=== PATIENT | female | born 1950 | race Caucasian/White ===

== ENCOUNTER → 2018-02-19 | Outpatient (CLI) | payer MEDICARE | LOC: RAD 13:47 | PROVIDERS: ATTEND Family Medicine | DX: M79.604 Pain in right leg (principal) | CPT/HCPCS: 93971 ==

== ENCOUNTER → 2018-06-06 | Outpatient (CLI) | payer MEDICARE ==
--- NOTE | 2018-06-06 15:24 | Diagnostic Imaging Report ---
History: Low back pain with bilateral leg weakness Comparison studies: None Technique: Sagittal, coronal and axial T2 , sagittal T1 and IR, axial spin density oblique. Intravenous contrast: None Findings: Number of lumbar vertebral bodies:5 Alignment: Grade 1 anterolisthesis of L3 over L4 and L4 over L5. Grade 1 retrolistheses of L5 over S1.Dextroscoliosis of the lumbar spine centered at L3-L4, with corrective levoscoliosis centered at T12-L1. Soft tissues: No T2 hyperintense inflammatory changes. Paraspinal muscles: Fatty infiltration of the paraspinal musculature, mild on the right and severe left at the lumbosacral junction. Lower thoracic cord:Normal in signal and morphology. The tip of the conus is at L1 superior endplate. Cauda equina: No masses. No arachnoiditis. Vertebrae: Normal in height and signal intensity. No compression fractures, infection or neoplasm. Degenerative changes: Disc degeneration with loss of T2 signal posterior vertebral is at the lower thoracic spine without significant canal stenosis is partially visualized L1-L2: Disc degeneration with loss of T2 signal. Asymmetric right disc bulge, mild facet hypertrophy and right ligamentum flavum thickening results in mild canal stenosis, moderate right and mild left foraminal narrowing. L2-L3: Disc degeneration with loss of T2 signal and obliterated intervertebral space with mild Modic type I changes . Diffuse disc bulge, moderate right and mild left facet hypertrophy results in moderate canal stenosis and severe right and mild left foraminal narrowing. L3-L4: Disc degeneration with obliterated intervertebral space and Modic type I changes more prominent towards the left. Diffuse disc bulge and severe facet hypertrophy results in moderate to severe canal stenosis, severe bilateral foraminal narrowing. Nonvisualization of the ligamentum flavum and L3 spinous processes may represent previous intervention. L4-L5: Disc degeneration with decreased intervertebral space. Diffuse disc bulge and mild right and moderate left facet hypertrophy results in mild canal stenosis and moderate bilateral foraminal narrowing. L5-S1: Disc degeneration with loss of T2 signal and decreased intervertebral space. Diffuse disc bulge and mild bilateral facet hypertrophy results in mild canal stenosis and mild bilateral foraminal narrowing. Additional findings: None IMPRESSION: Severe degenerative foraminal narrowing at L2-L3 on the right and L3-L4 bilaterally. Moderate degenerative foraminal narrowing at L1-L2 and L2-L3 on the right and L4-L5 bilaterally. Degenerative canal stenosis moderate at L2-L3 and moderate to severe at L3-L4. Moderate disc degeneration throughout the lumbar spine with Modic type I changes at L2-L3 and L3-L4. Moderate severe facet hypertrophy at the mid and lower lumbar spine. Dextroscoliosis of the lumbar spine with corrected levoscoliosis at the thoracolumbar junction. Other degenerative changes as described above Signed by: DR Abraham Yeung M.D. on 06/06/2018 3:20 PM
== END ==
LOC: MRI 10:35
PROVIDERS: ATTEND Family Medicine
DX: M54.17 Radiculopathy, lumbosacral region (principal)
CPT/HCPCS: 72148

== ENCOUNTER → 2018-06-21 | Outpatient (CLI) | payer MEDICARE ==
--- NOTE | 2018-06-21 11:12 | Diagnostic Imaging Report ---
Left knee MRI without contrast. History: Knee pain. Medial meniscus tear. Decreased range of motion. Fall. Prior surgery. Comparison: None. Technique: Multiplanar multi-sequence MRI of the knee without contrast. Findings: Medial compartment: There is a complex medial meniscus tear involving the posterior horn and body segments. Meniscal tissue is subluxed to the periphery. There is advanced full-thickness articular cartilage loss in the medial compartment with underlying bone marrow edema. There are peripheral marginal osteophytes. The medial collateral ligament complex is intact. Lateral compartment: There is a complex lateral meniscus tear involving the posterior horn and body segments. Meniscal tissue is subluxed to the periphery. There is advanced full-thickness articular cartilage loss in the lateral compartment with underlying bone marrow edema. There are peripheral marginal osteophytes. The lateral collateral ligament complex is intact. Intercondylar notch: There is a chronic anterior cruciate ligament and posterior cruciate ligament tear. A stump of the posterior cruciate ligament is seen at the femoral insertion site. Patellofemoral compartment: There are regions of full-thickness articular cartilage loss in the patellofemoral compartment with underlying bone marrow edema. Extensor mechanism: The quadriceps and patellar tendons are normal. Other findings: There is a joint effusion and synovitis. There is no acute fracture, subluxation or avascular necrosis. There are varicose veins. 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 Joint effusion, synovitis and varicose veins. Signed by: Dr. Jayant Rivera M.D. on 06/21/2018 11:08 AM
== END ==
LOC: MRI 09:45
PROVIDERS: ATTEND Specialist
DX: S83.242A Other tear of medial meniscus, current injury, left knee, initial encounter (principal)

== ENCOUNTER → 2018-07-13 | Outpatient (RCR) | payer MEDICARE | LOC: PT 07-09 10:07 | PROVIDERS: ATTEND Specialist | DX: S39.012A Strain of muscle, fascia and tendon of lower back, initial encounter (principal); M54.5 Low back pain; M25.562 Pain in left knee; M62.81 Muscle weakness (generalized); R26.9 Unspecified abnormalities of gait and mobility; R26.89 Other abnormalities of gait and mobility; R26.81 Unsteadiness on feet | CPT/HCPCS: 97110 ×2; 97162; G8978; G8979 ==

== ENCOUNTER 2018-08-10 14:00 | Outpatient (RCR) | payer MEDICARE | END 2018-08-13 | LOC: PT 14:00 | PROVIDERS: ATTEND Specialist | DX: S33.5XXA Sprain of ligaments of lumbar spine, initial encounter (principal); M54.5 Low back pain; M25.562 Pain in left knee; M62.81 Muscle weakness (generalized); R26.89 Other abnormalities of gait and mobility; R26.9 Unspecified abnormalities of gait and mobility; R26.81 Unsteadiness on feet | CPT/HCPCS: 97010; 97110 ×9; 97164; G8978; G8979 ==

== ENCOUNTER 2018-08-28 11:00 | Outpatient (RCR) | payer MEDICARE | END 2018-09-13 | LOC: PT 11:00 | PROVIDERS: ATTEND Specialist | DX: S33.5XXA Sprain of ligaments of lumbar spine, initial encounter (principal); M54.5 Low back pain; M25.562 Pain in left knee; M62.81 Muscle weakness (generalized); R26.9 Unspecified abnormalities of gait and mobility; R26.89 Other abnormalities of gait and mobility; R26.81 Unsteadiness on feet | CPT/HCPCS: 97139 ==

== ENCOUNTER → 2021-01-26 | Outpatient (CLI) | payer MEDICARE | LOC: RAD 13:59 | PROVIDERS: ATTEND Family Medicine | DX: M75.42 Impingement syndrome of left shoulder (principal) ==

== ENCOUNTER → 2021-12-31 | Outpatient (CLI) | payer MEDICARE | LOC: RAD 08:56 | PROVIDERS: ATTEND Family Medicine | DX: Z01.810 Encounter for preprocedural cardiovascular examination (principal) | CPT/HCPCS: 71046 ==

== ENCOUNTER → 2022-01-18 | Outpatient (CLI) | payer MEDICARE ==
[~2022-01-18] MED LIST: REGADENOSON 0.4 MG/5 ML SYR IV ONE
== END ==
LOC: NM 06:46
PROVIDERS: ATTEND Internal Medicine Cardiovascular Disease
DX: R06.02 Shortness of breath (principal); Z01.810 Encounter for preprocedural cardiovascular examination
CPT/HCPCS: 78452; 93017; A9502; J2785

== ENCOUNTER → 2022-06-24 | Outpatient (CLI) | payer MEDICARE | LOC: CARD 09:28 | PROVIDERS: ATTEND Family Medicine | DX: I73.9 Peripheral vascular disease, unspecified (principal) | CPT/HCPCS: 93922; 93926 ==